=== PATIENT | male | born 1940 | race African-American/Black ===

== ENCOUNTER 2021-01-26 11:16 | Inpatient (IN) ==
[2021-01-26] MEDS ORDERED: ONDANSETRON 4 MG/2 ML VIAL IV STA (12:38)
[2021-01-26 12:57] LABS: Basophils % 0.3 % (0.0-0.8); Eosinophils # 0.1 10*3/uL (0.0-0.87); Hematocrit 36.1 VOL% (42.0-52.0); Hemoglobin 11.3 GM/DL (14.0-18.0); Immature Granulocytes % 0.3 %; Immature Granulocytes Absolute 0.03 #; Lymphocytes # 1.1 10*3/uL (1.4-4.0); Mean Corpuscular HGB Conc 31.3 GM/DL (32-36); Mean Corpuscular Volume 106.5 FL (87-102); Mean Platelet Volume 10.8 FL (9.6-12.0); Monocytes % 8.8 % (1.7-12.7); Neutrophils % 78.6 % (38.7-73.9); Platelet Count 82 T/CUMM (130-400); Red Blood Count 3.39 MC/CUMM (3.8-5.5); Red Cell Distribution Width 19.4 % (9.3-17.3); White Blood Count 9.6 T/CUMM (4-12)
[2021-01-26 13:18] LABS: Albumin 3.3 G/DL (3.4-5.0); Calcium 9.5 MG/DL (8.5-10.1); Osmolality,Calculated 281.4 MOS/KG (273-304); Potassium 5.1 MMOL/L (3.5-5.1)
[2021-01-26 14:22] LABS: Atypical Lymphocytes 1+; Hypochromasia 1+; Microcytosis 1+
[2021-01-26 14:23] LABS: Platelet Estimate Decreased
[2021-01-26] MEDS ORDERED: GLUCAGON 1 MG VIAL IM PRN (17:08)
[2021-01-26] MEDS ORDERED: hydrALAZINE 20 MG/1 ML VIAL IV PRN (17:08)
[2021-01-26] MEDS ORDERED: DEXTROSE 50% 25 GM/50 ML VIAL IV PRN (17:08)
[2021-01-26] MEDS ORDERED: ACETAMINOPHEN 325 MG TABLET PO PRN (17:08)
[2021-01-26] MEDS ORDERED: ONDANSETRON 4 MG/2 ML VIAL IV PRN (17:08)
[2021-01-26] MEDS ORDERED: LACTULOSE 20 GM/30 ML UDCUP PO PRN (17:08)
[2021-01-26] MEDS ORDERED: ZALEPLON 5 MG CAPSULE PO PRN (17:08)
[2021-01-26] MEDS: cefTRIAXone 1,000 MG in SODIUM CHLORIDE 0.9% 100 ML IV SCH (17:47)
[2021-01-26] MEDS: AZITHROMYCIN INJ 500 MG in SODIUM CHLORIDE 0.9% 250 ML IV SCH (18:55)
[2021-01-26] MEDS: SIMVASTATIN 20 MG TABLET PO SCH (21:38)
[2021-01-26] MEDS: carvediloL 6.25 MG TABLET PO SCH (21:38)
[2021-01-26] MEDS: APIXABAN 2.5 MG TABLET PO SCH (21:39)
[2021-01-26] MEDS: GABAPENTIN 100 MG CAPSULE PO SCH (21:39)
[2021-01-27 05:53] LABS: Basophils % 0.1 % (0.0-0.8); Eosinophils # 0.3 10*3/uL (0.0-0.87); Eosinophils % 3.6 % (0.00-10.9); Hematocrit 30.6 VOL% (42.0-52.0); Hemoglobin 9.9 GM/DL (14.0-18.0); Immature Granulocytes % 0.4 %; Immature Granulocytes Absolute 0.03 #; Lymphocytes # 0.9 10*3/uL (1.4-4.0); Lymphocytes % 12.6 % (21.2-54.2); Mean Corpuscular HGB Conc 32.4 GM/DL (32-36); Mean Platelet Volume 10.7 FL (9.6-12.0); Monocytes % 16.3 % (1.7-12.7); Red Cell Distribution Width 19.3 % (9.3-17.3); White Blood Count 7.3 T/CUMM (4-12)
[2021-01-27 05:57] LABS: Platelet Count 52 T/CUMM (130-400)
[2021-01-27 06:14] LABS: Atypical Lymphocytes Few; Eosinophils 2 % (0-10); Hypochromasia 1+; Lymphocytes 17 % (20-55); Microcytosis 1+; Ovalocytes Slight; Platelet Estimate Decreased; Segmented Neutrophils 72 % (50-85); Total Cells Counted 100
[2021-01-27 06:27] LABS: Osmolality,Calculated 279.5 MOS/KG (273-304); Potassium 5.7 MMOL/L (3.5-5.1); Risk Ratio 1.89; VLDL CHOLESTEROL 9.2 MG/DL
[2021-01-27] MEDS ORDERED: ALBUTEROL/IPRATROPIUM 3 ML NEB RESP TX PRN (07:46)
[2021-01-27] MEDS: carvediloL 6.25 MG TABLET PO SCH ×2 (09:34→20:55)
[2021-01-27] MEDS: GABAPENTIN 100 MG CAPSULE PO SCH ×3 (09:34→20:55)
[2021-01-27] MEDS: SEVELAMER CARBONATE 800 MG TABLET PO SCH ×3 (09:34→17:05)
[2021-01-27] MEDS: PANTOPRAZOLE 40 MG TABLET PO SCH (09:34)
[2021-01-27] MEDS: ASPIRIN EC 81 MG TABLET PO SCH (09:34)
[2021-01-27] MEDS: APIXABAN 2.5 MG TABLET PO SCH (09:34)
[2021-01-27] MEDS: FUROSEMIDE 40 MG/4 ML VIAL IV SCH (09:35)
[2021-01-27 15:23] LABS: INR 1.3; PT Patient Result 14.3 SECS (10.5-12.0)
[2021-01-27] MEDS: cefTRIAXone 1,000 MG in SODIUM CHLORIDE 0.9% 100 ML IV SCH (16:13)
[2021-01-27] MEDS: AZITHROMYCIN INJ 500 MG in SODIUM CHLORIDE 0.9% 250 ML IV SCH (18:02)
[2021-01-27] MEDS: BENZONATATE 100 MG CAPSULE PO PRN (20:55)
[2021-01-27] MEDS: SIMVASTATIN 20 MG TABLET PO SCH (20:55)
[2021-01-28 05:41] LABS: Calcium 8.6 MG/DL (8.5-10.1); Osmolality,Calculated 276.2 MOS/KG (273-304); Potassium 4.7 MMOL/L (3.5-5.1)
[2021-01-28 05:43] LABS: Basophils % 0.4 % (0.0-0.8); Eosinophils # 0.3 10*3/uL (0.0-0.87); Eosinophils % 5.9 % (0.00-10.9); Hematocrit 27.7 VOL% (42.0-52.0); Hemoglobin 9.3 GM/DL (14.0-18.0); Immature Granulocytes % 0.4 %; Immature Granulocytes Absolute 0.02 #; Lymphocytes # 0.6 10*3/uL (1.4-4.0); Lymphocytes % 10.5 % (21.2-54.2); Mean Corpuscular HGB Conc 33.6 GM/DL (32-36); Mean Corpuscular Volume 101.1 FL (87-102); Mean Platelet Volume 12.6 FL (9.6-12.0); Monocytes % 15.3 % (1.7-12.7); Neutrophils % 67.5 % (38.7-73.9); Red Blood Count 2.74 MC/CUMM (3.8-5.5); Red Cell Distribution Width 19.3 % (9.3-17.3); White Blood Count 5.6 T/CUMM (4-12)
[2021-01-28 05:44] LABS: Platelet Count 60 T/CUMM (130-400)
[2021-01-28 05:48] LABS: Hypochromasia 1+; Microcytosis 1+; Platelet Estimate Decreased
[2021-01-28] MEDS: PANTOPRAZOLE 40 MG TABLET PO SCH (08:52)
[2021-01-28] MEDS: GABAPENTIN 100 MG CAPSULE PO SCH ×3 (08:53→21:43)
[2021-01-28] MEDS: SEVELAMER CARBONATE 800 MG TABLET PO SCH ×3 (08:53→17:15)
[2021-01-28] MEDS: ASPIRIN EC 81 MG TABLET PO SCH (08:53)
[2021-01-28] MEDS: carvediloL 6.25 MG TABLET PO SCH ×2 (08:53→21:43)
[2021-01-28] MEDS: FUROSEMIDE 40 MG/4 ML VIAL IV SCH (08:53)
[2021-01-28] MEDS: cefTRIAXone 1,000 MG in SODIUM CHLORIDE 0.9% 100 ML IV SCH (08:59)
[2021-01-28] MEDS: BENZONATATE 100 MG CAPSULE PO PRN ×2 (09:25→21:43)
[2021-01-28] MEDS: AZITHROMYCIN INJ 500 MG in SODIUM CHLORIDE 0.9% 250 ML IV SCH (10:29)
[2021-01-28] MEDS: LACTULOSE 20 GM/30 ML UDCUP PO PRN (15:58)
[2021-01-28] MEDS: SIMVASTATIN 20 MG TABLET PO SCH (21:43)
[2021-01-29 05:55] LABS: Basophils % 0.3 % (0.0-0.8); Eosinophils # 0.3 10*3/uL (0.0-0.87); Eosinophils % 5.8 % (0.00-10.9); Hematocrit 28.5 VOL% (42.0-52.0); Hemoglobin 9.2 GM/DL (14.0-18.0); Immature Granulocytes % 0.2 %; Immature Granulocytes Absolute 0.01 #; Lymphocytes # 0.5 10*3/uL (1.4-4.0); Lymphocytes % 9.2 % (21.2-54.2); Mean Corpuscular HGB Conc 32.3 GM/DL (32-36); Mean Corpuscular Volume 103.3 FL (87-102); Mean Platelet Volume 11.3 FL (9.6-12.0); Monocytes % 15.4 % (1.7-12.7); Neutrophils % 69.1 % (38.7-73.9); Red Blood Count 2.76 MC/CUMM (3.8-5.5); White Blood Count 5.7 T/CUMM (4-12)
[2021-01-29 05:57] LABS: Platelet Count 77 T/CUMM (130-400)
[2021-01-29 06:03] LABS: Calcium 8.9 MG/DL (8.5-10.1); Osmolality,Calculated 277.5 MOS/KG (273-304); Potassium 4.7 MMOL/L (3.5-5.1)
[2021-01-29 06:23] LABS: Anisocytosis 1+; Platelet Estimate Decreased; Poikilocytosis Slight
[2021-01-29 06:24] LABS: Burr Cells Few; Macrocytosis 1+; Ovalocytes Few
[2021-01-29] MEDS: SEVELAMER CARBONATE 800 MG TABLET PO SCH ×4 (08:02→16:14)
[2021-01-29] MEDS: ASPIRIN EC 81 MG TABLET PO SCH (08:02)
[2021-01-29] MEDS: GABAPENTIN 100 MG CAPSULE PO SCH ×3 (08:02→21:15)
[2021-01-29] MEDS: FUROSEMIDE 40 MG/4 ML VIAL IV SCH (08:03)
[2021-01-29] MEDS: PANTOPRAZOLE 40 MG TABLET PO SCH (08:03)
[2021-01-29] MEDS: cefTRIAXone 1,000 MG in SODIUM CHLORIDE 0.9% 100 ML IV SCH (08:04)
[2021-01-29] MEDS: AZITHROMYCIN INJ 500 MG in SODIUM CHLORIDE 0.9% 250 ML IV SCH ×2 (08:05→09:29)
[2021-01-29] MEDS: carvediloL 12.5 MG TABLET PO SCH ×2 (08:15→21:15)
[2021-01-29] MEDS: SIMVASTATIN 20 MG TABLET PO SCH (21:15)
[2021-01-30 05:21] LABS: Basophils % 0.3 % (0.0-0.8); Eosinophils # 0.3 10*3/uL (0.0-0.87); Eosinophils % 5.3 % (0.00-10.9); Hematocrit 24.8 VOL% (42.0-52.0); Hemoglobin 7.8 GM/DL (14.0-18.0); Immature Granulocytes % 0.6 %; Immature Granulocytes Absolute 0.04 #; Lymphocytes # 0.7 10*3/uL (1.4-4.0); Lymphocytes % 10.9 % (21.2-54.2); Mean Corpuscular HGB Conc 31.5 GM/DL (32-36); Mean Corpuscular Volume 103.3 FL (87-102); Mean Platelet Volume 10.8 FL (9.6-12.0); Monocytes % 12.2 % (1.7-12.7); Neutrophils % 70.7 % (38.7-73.9); Platelet Count 99 T/CUMM (130-400); Red Cell Distribution Width 18.7 % (9.3-17.3); White Blood Count 6.2 T/CUMM (4-12)
[2021-01-30 05:40] LABS: Hypochromasia 1+; Microcytosis 1+; Ovalocytes Few; Platelet Estimate Decreased
[2021-01-30 05:51] LABS: Calcium 8.7 MG/DL (8.5-10.1); Potassium 4.6 MMOL/L (3.5-5.1)
[2021-01-30] MEDS: FUROSEMIDE 40 MG/4 ML VIAL IV SCH (09:57)
[2021-01-30] MEDS: cefTRIAXone 1,000 MG in SODIUM CHLORIDE 0.9% 100 ML IV SCH (09:57)
[2021-01-30] MEDS: SEVELAMER CARBONATE 800 MG TABLET PO SCH ×3 (10:00→16:01)
[2021-01-30] MEDS: ASPIRIN EC 81 MG TABLET PO SCH (10:00)
[2021-01-30] MEDS: GABAPENTIN 100 MG CAPSULE PO SCH ×3 (10:01→20:28)
[2021-01-30] MEDS: carvediloL 12.5 MG TABLET PO SCH ×2 (10:01→20:27)
[2021-01-30] MEDS: PANTOPRAZOLE 40 MG TABLET PO SCH (10:01)
[2021-01-30] MEDS: AZITHROMYCIN INJ 500 MG in SODIUM CHLORIDE 0.9% 250 ML IV SCH (11:34)
[2021-01-30 13:16] LABS: Hematocrit 25.3 VOL% (42.0-52.0)
[2021-01-30 20:20] LABS: Lymphocytes,Synovial Fluid 4 %; Neutrophils,Synovial Fluid 87 %
[2021-01-30] MEDS: SIMVASTATIN 20 MG TABLET PO SCH (20:28)
[2021-01-30 21:09] LABS: Amylase,Pleural Fluid 27 U/L; Glucose,Pleural Fluid 106 MG/DL; LDH,Pleural Fluid 113 U/L; Total Protein,Pleural Fluid 2.2 G/DL
[2021-01-30 21:19] LABS: Eosinophils,Pleural Fluid 1 %; Lymphocytes,Pleural Fluid 31 %; Monocytes,Pleural Fluid 36 %; Neutrophils,Pleural Fluid 32 %; RBC,Pleural Fluid 69181 T/CUMM
[2021-01-31 06:14] LABS: Basophils % 0.5 % (0.0-0.8); Eosinophils # 0.3 10*3/uL (0.0-0.87); Eosinophils % 4.9 % (0.00-10.9); Hematocrit 22.8 VOL% (42.0-52.0); Hemoglobin 7.2 GM/DL (14.0-18.0); Immature Granulocytes % 0.7 %; Immature Granulocytes Absolute 0.04 #; Lymphocytes # 0.6 10*3/uL (1.4-4.0); Lymphocytes % 10.4 % (21.2-54.2); Mean Corpuscular HGB Conc 31.6 GM/DL (32-36); Mean Corpuscular Volume 103.6 FL (87-102); Mean Platelet Volume 10.8 FL (9.6-12.0); Monocytes % 11.7 % (1.7-12.7); Neutrophils % 71.8 % (38.7-73.9); Platelet Count 105 T/CUMM (130-400); Red Cell Distribution Width 18.7 % (9.3-17.3); White Blood Count 6.2 T/CUMM (4-12)
[2021-01-31 06:24] LABS: Albumin 2.2 G/DL (3.4-5.0); Bilirubin,Total 0.7 MG/DL (0.2-1.0); Osmolality,Calculated 277.4 MOS/KG (273-304); Potassium 5.1 MMOL/L (3.5-5.1); Total Protein 6.4 G/DL (6.4-8.2)
[2021-01-31] MEDS: FUROSEMIDE 40 MG/4 ML VIAL IV SCH (08:35)
[2021-01-31] MEDS: ASPIRIN EC 81 MG TABLET PO SCH (08:38)
[2021-01-31] MEDS: carvediloL 12.5 MG TABLET PO SCH ×2 (08:38→21:26)
[2021-01-31] MEDS: SEVELAMER CARBONATE 800 MG TABLET PO SCH ×3 (08:54→18:26)
[2021-01-31] MEDS: GABAPENTIN 100 MG CAPSULE PO SCH ×3 (08:56→21:26)
[2021-01-31] MEDS: PANTOPRAZOLE 40 MG TABLET PO SCH (08:56)
[2021-01-31] MEDS ORDERED: SODIUM CHLORIDE 0.9% 1,000 ML IV PRN (10:35)
[2021-01-31] MEDS: LACTULOSE 20 GM/30 ML UDCUP PO PRN ×2 (12:56→18:26)
[2021-01-31] MEDS: cefTRIAXone 1,000 MG in SODIUM CHLORIDE 0.9% 100 ML IV SCH (13:47)
[2021-01-31] MEDS: AZITHROMYCIN INJ 500 MG in SODIUM CHLORIDE 0.9% 250 ML IV SCH (14:44)
[2021-01-31] MEDS: APIXABAN 2.5 MG TABLET PO SCH (20:42)
[2021-01-31] MEDS: SIMVASTATIN 20 MG TABLET PO SCH (21:26)
[2021-02-01 06:07] LABS: Basophils % 0.3 % (0.0-0.8); Eosinophils # 0.3 10*3/uL (0.0-0.87); Eosinophils % 5.7 % (0.00-10.9); Hematocrit 24.2 VOL% (42.0-52.0); Hemoglobin 7.6 GM/DL (14.0-18.0); Immature Granulocytes % 0.5 %; Immature Granulocytes Absolute 0.03 #; Lymphocytes # 0.6 10*3/uL (1.4-4.0); Lymphocytes % 10.7 % (21.2-54.2); Mean Corpuscular HGB Conc 31.4 GM/DL (32-36); Mean Corpuscular Volume 102.5 FL (87-102); Mean Platelet Volume 10.6 FL (9.6-12.0); Monocytes % 11.7 % (1.7-12.7); Neutrophils % 71.1 % (38.7-73.9); Platelet Count 136 T/CUMM (130-400); Red Blood Count 2.36 MC/CUMM (3.8-5.5); Red Cell Distribution Width 18.5 % (9.3-17.3)
[2021-02-01 06:19] LABS: Calcium 8.6 MG/DL (8.5-10.1); Osmolality,Calculated 281.8 MOS/KG (273-304); Potassium 4.5 MMOL/L (3.5-5.1)
[2021-02-01] MEDS: PANTOPRAZOLE 40 MG TABLET PO SCH (09:30)
[2021-02-01] MEDS: FUROSEMIDE 40 MG/4 ML VIAL IV SCH (09:30)
[2021-02-01] MEDS: LACTULOSE 20 GM/30 ML UDCUP PO SCH ×6 (09:30→23:45)
[2021-02-01] MEDS: SEVELAMER CARBONATE 800 MG TABLET PO SCH ×3 (09:30→17:16)
[2021-02-01] MEDS: ASPIRIN EC 81 MG TABLET PO SCH (09:30)
[2021-02-01] MEDS: GABAPENTIN 100 MG CAPSULE PO SCH ×3 (09:30→20:54)
[2021-02-01] MEDS: carvediloL 12.5 MG TABLET PO SCH ×2 (09:31→20:54)
[2021-02-01] MEDS: APIXABAN 2.5 MG TABLET PO SCH ×2 (09:31→20:54)
[2021-02-01] MEDS: cefTRIAXone 1,000 MG in SODIUM CHLORIDE 0.9% 100 ML IV SCH (09:34)
[2021-02-01] MEDS: AZITHROMYCIN INJ 500 MG in SODIUM CHLORIDE 0.9% 250 ML IV SCH (10:59)
[2021-02-01] MEDS: SIMVASTATIN 20 MG TABLET PO SCH (20:54)
[2021-02-02] MEDS: LACTULOSE 20 GM/30 ML UDCUP PO SCH ×5 (03:22→20:51)
[2021-02-02 05:23] LABS: Basophils % 0.3 % (0.0-0.8); Eosinophils # 0.4 10*3/uL (0.0-0.87); Eosinophils % 6.1 % (0.00-10.9); Hematocrit 25.2 VOL% (42.0-52.0); Immature Granulocytes % 0.6 %; Immature Granulocytes Absolute 0.04 #; Lymphocytes # 0.7 10*3/uL (1.4-4.0); Mean Corpuscular HGB Conc 31.7 GM/DL (32-36); Mean Corpuscular Volume 102.4 FL (87-102); Mean Platelet Volume 10.2 FL (9.6-12.0); Monocytes % 11.7 % (1.7-12.7); Neutrophils % 71.3 % (38.7-73.9); Platelet Count 165 T/CUMM (130-400); Red Blood Count 2.46 MC/CUMM (3.8-5.5); Red Cell Distribution Width 18.2 % (9.3-17.3); White Blood Count 6.8 T/CUMM (4-12)
[2021-02-02 05:51] LABS: Osmolality,Calculated 282.1 MOS/KG (273-304); Potassium 4.4 MMOL/L (3.5-5.1)
[2021-02-02] MEDS: cefTRIAXone 1,000 MG in SODIUM CHLORIDE 0.9% 100 ML IV SCH (09:12)
[2021-02-02] MEDS: FUROSEMIDE 40 MG/4 ML VIAL IV SCH (09:14)
[2021-02-02] MEDS: GABAPENTIN 100 MG CAPSULE PO SCH ×3 (09:16→20:51)
[2021-02-02] MEDS: SEVELAMER CARBONATE 800 MG TABLET PO SCH ×3 (09:16→17:00)
[2021-02-02] MEDS: APIXABAN 2.5 MG TABLET PO SCH ×2 (09:16→20:51)
[2021-02-02] MEDS: carvediloL 12.5 MG TABLET PO SCH ×2 (09:16→20:51)
[2021-02-02] MEDS: ASPIRIN EC 81 MG TABLET PO SCH (09:16)
[2021-02-02] MEDS: PANTOPRAZOLE 40 MG TABLET PO SCH (09:16)
[2021-02-02] MEDS: AZITHROMYCIN INJ 500 MG in SODIUM CHLORIDE 0.9% 250 ML IV SCH (09:54)
[2021-02-02] MEDS: SIMVASTATIN 20 MG TABLET PO SCH (20:51)
[2021-02-03] MEDS: LACTULOSE 20 GM/30 ML UDCUP PO SCH ×6 (00:16→20:00)
[2021-02-03 06:36] LABS: Basophils % 0.4 % (0.0-0.8); Eosinophils # 0.4 10*3/uL (0.0-0.87); Eosinophils % 5.3 % (0.00-10.9); Hematocrit 25.2 VOL% (42.0-52.0); Hemoglobin 8.4 GM/DL (14.0-18.0); Immature Granulocytes % 0.4 %; Immature Granulocytes Absolute 0.03 #; Lymphocytes # 0.7 10*3/uL (1.4-4.0); Lymphocytes % 9.7 % (21.2-54.2); Mean Corpuscular HGB Conc 33.3 GM/DL (32-36); Mean Platelet Volume 10.5 FL (9.6-12.0); Monocytes % 9.7 % (1.7-12.7); Neutrophils % 74.5 % (38.7-73.9); Platelet Count 167 T/CUMM (130-400); Red Blood Count 2.52 MC/CUMM (3.8-5.5); Red Cell Distribution Width 18.1 % (9.3-17.3); White Blood Count 6.8 T/CUMM (4-12)
[2021-02-03 06:51] LABS: Calcium 9.2 MG/DL (8.5-10.1); Osmolality,Calculated 280.4 MOS/KG (273-304); Potassium 4.7 MMOL/L (3.5-5.1)
[2021-02-03] MEDS: APIXABAN 2.5 MG TABLET PO SCH ×2 (08:31→21:24)
[2021-02-03] MEDS: GABAPENTIN 100 MG CAPSULE PO SCH ×3 (08:31→21:28)
[2021-02-03] MEDS: carvediloL 12.5 MG TABLET PO SCH (08:31)
[2021-02-03] MEDS: PANTOPRAZOLE 40 MG TABLET PO SCH (08:31)
[2021-02-03] MEDS: ASPIRIN EC 81 MG TABLET PO SCH (08:31)
[2021-02-03] MEDS: FUROSEMIDE 40 MG/4 ML VIAL IV SCH (08:32)
[2021-02-03] MEDS: SEVELAMER CARBONATE 800 MG TABLET PO SCH ×3 (09:35→16:25)
[2021-02-03 19:36] LABS: CEA, Pleural Fluid 1.2 ng/mL
[2021-02-03] MEDS: SIMVASTATIN 20 MG TABLET PO SCH (21:28)
[2021-02-03] MEDS: carvediloL 25 MG TABLET PO SCH (21:28)
[2021-02-03] MEDS: DILTIAZEM 60 MG TABLET PO SCH (21:36)
[2021-02-04] MEDS: LACTULOSE 20 GM/30 ML UDCUP PO SCH ×3 (03:24→10:07)
[2021-02-04 06:09] LABS: Basophils % 0.5 % (0.0-0.8); Eosinophils # 0.4 10*3/uL (0.0-0.87); Eosinophils % 5.1 % (0.00-10.9); Hematocrit 27.5 VOL% (42.0-52.0); Hemoglobin 8.9 GM/DL (14.0-18.0); Immature Granulocytes % 0.6 %; Immature Granulocytes Absolute 0.05 #; Lymphocytes # 0.8 10*3/uL (1.4-4.0); Lymphocytes % 10.5 % (21.2-54.2); Mean Corpuscular HGB Conc 32.4 GM/DL (32-36); Mean Corpuscular Volume 100.7 FL (87-102); Monocytes % 9.4 % (1.7-12.7); Neutrophils % 73.9 % (38.7-73.9); Platelet Count 175 T/CUMM (130-400); Red Blood Count 2.73 MC/CUMM (3.8-5.5); Red Cell Distribution Width 17.9 % (9.3-17.3); White Blood Count 7.7 T/CUMM (4-12)
[2021-02-04 06:20] LABS: Calcium 8.9 MG/DL (8.5-10.1); Potassium 4.4 MMOL/L (3.5-5.1)
[2021-02-04] MEDS: ASPIRIN EC 81 MG TABLET PO SCH (09:27)
[2021-02-04] MEDS: SEVELAMER CARBONATE 800 MG TABLET PO SCH ×2 (09:27→12:47)
[2021-02-04] MEDS: carvediloL 25 MG TABLET PO SCH (09:28)
[2021-02-04] MEDS: PANTOPRAZOLE 40 MG TABLET PO SCH (09:28)
[2021-02-04] MEDS: APIXABAN 2.5 MG TABLET PO SCH (09:28)
[2021-02-04] MEDS: GABAPENTIN 100 MG CAPSULE PO SCH (09:28)
[2021-02-04] MEDS: FUROSEMIDE 40 MG/4 ML VIAL IV SCH (09:30)
[2021-02-04] MEDS: DILTIAZEM 60 MG TABLET PO SCH ×2 (11:29→12:47)
[2021-02-04 12:13] VITALS: BP 110/54
[2021-02-04] MEDS ORDERED: SIMVASTATIN 10 MG TABLET PO SCH (21:00)
== END 2021-02-04 15:00 | disposition home health service (06) | DRG 193 ==
LOC: N.ED 11:16 → N.EDINP 11:16 → N.5E 18:02 → SUATTDRO 01-27 14:59
PROVIDERS: ADMIT Internal Medicine; ATTEND Internal Medicine
PROC: IRTHORA (2021-01-30 14:50)

== ENCOUNTER 2021-02-06 14:12 | Inpatient (IN) ==
[2021-02-06] MEDS ORDERED: NOREPINEPHRINE 4 MG/4 ML VIAL IV ONE (14:59)
[2021-02-06] MEDS ORDERED: VANCOMYCIN INJ 1,000 MG in SODIUM CHLORIDE 0.9% 250 ML IV STA (15:13)
[2021-02-06] MEDS ORDERED: SODIUM CHLORIDE 0.9% 1,000 ML IV PRN (15:14)
[2021-02-06] MEDS ORDERED: ONDANSETRON 4 MG/2 ML VIAL IV PRN (15:22)
[2021-02-06] MEDS ORDERED: GLUCAGON 1 MG VIAL IM PRN (15:22)
[2021-02-06] MEDS ORDERED: ALBUTEROL 2.5 MG/3 ML NEB RESP TX PRN (15:22)
[2021-02-06] MEDS ORDERED: DEXTROSE 50% 25 GM/50 ML VIAL IV PRN (15:22)
[2021-02-06 15:23] LABS: Basophils % 0.2 % (0.0-0.8); Eosinophils # 0.1 10*3/uL (0.0-0.87); Eosinophils % 0.8 % (0.00-10.9); Immature Granulocytes % 1.5 %; Immature Granulocytes Absolute 0.18 #; Lymphocytes % 8.5 % (21.2-54.2); Mean Corpuscular HGB Conc 31.4 GM/DL (32-36); Mean Corpuscular Volume 103.6 FL (87-102); Mean Platelet Volume 10.2 FL (9.6-12.0); Monocytes % 8.5 % (1.7-12.7); Neutrophils % 80.5 % (38.7-73.9); Platelet Count 249 T/CUMM (130-400); Red Blood Count 1.66 MC/CUMM (3.8-5.5); Red Cell Distribution Width 17.8 % (9.3-17.3); White Blood Count 11.9 T/CUMM (4-12)
[2021-02-06] MEDS ORDERED: NOREPINEPHRINE 8 MG in SODIUM CHLORIDE 0.9% 242 ML IV PRN (15:24)
[2021-02-06 15:26] LABS: Hematocrit 17.2 VOL% (42.0-52.0); Hemoglobin 5.4 GM/DL (14.0-18.0)
[2021-02-06] MEDS ORDERED: HYDROCORTISONE 100 MG VIAL IV STA (15:27)
[2021-02-06] MEDS ORDERED: cefTRIAXone 1,000 MG VIAL ONE (16:16)
[2021-02-06] MEDS: PANTOPRAZOLE 40 MG VIAL IV SCH (17:48)
[2021-02-06] MEDS: cefTRIAXone 2,000 MG in SODIUM CHLORIDE 0.9% 100 ML IV SCH (17:49)
[2021-02-06] MEDS: HYDROCORTISONE 100 MG VIAL IV SCH (17:49)
[2021-02-06] MEDS: SEVELAMER CARBONATE 800 MG TABLET PO SCH (19:03)
[2021-02-06] MEDS: INSULIN LISPRO 100 UNIT/ML SUBCUT SCH ×2 (19:03→20:14)
[2021-02-06] MEDS ORDERED: APIXABAN 2.5 MG TABLET PO SCH (21:00)
[2021-02-06 23:29] LABS: Hematocrit 23.5 VOL% (42.0-52.0)
[2021-02-06 23:31] LABS: Hemoglobin 7.7 GM/DL (14.0-18.0)
[2021-02-07] MEDS: HYDROCORTISONE 100 MG VIAL IV SCH ×4 (00:07→22:57)
[2021-02-07] MEDS ORDERED: cefTRIAXone 2,000 MG VIAL ONE (04:00)
[2021-02-07] MEDS ORDERED: SODIUM CHLORIDE 0.9% 0 ML IV ONE (04:00)
[2021-02-07] MEDS: cefTRIAXone 2,000 MG in SODIUM CHLORIDE 0.9% 100 ML IV SCH ×2 (04:14→17:45)
[2021-02-07 06:27] LABS: Basophils % 0.1 % (0.0-0.8); Hematocrit 20.2 VOL% (42.0-52.0); Immature Granulocytes % 0.7 %; Immature Granulocytes Absolute 0.08 #; Lymphocytes # 0.8 10*3/uL (1.4-4.0); Lymphocytes % 6.5 % (21.2-54.2); Mean Corpuscular HGB Conc 34.7 GM/DL (32-36); Mean Corpuscular Volume 96.2 FL (87-102); Mean Platelet Volume 9.9 FL (9.6-12.0); Monocytes % 5.9 % (1.7-12.7); Neutrophils % 86.8 % (38.7-73.9); Platelet Count 208 T/CUMM (130-400); Red Cell Distribution Width 17.2 % (9.3-17.3); White Blood Count 11.5 T/CUMM (4-12)
[2021-02-07 06:59] LABS: Albumin 1.9 G/DL (3.4-5.0); Bilirubin,Total 1.5 MG/DL (0.2-1.0); Calcium 8.2 MG/DL (8.5-10.1); Osmolality,Calculated 284.2 MOS/KG (273-304); Potassium 5.6 MMOL/L (3.5-5.1); Thyroid Stimulating Hormone 2.29 uIU/ml (0.358-3.74); Total Protein 5.6 G/DL (6.4-8.2)
[2021-02-07] MEDS: INSULIN LISPRO 100 UNIT/ML SUBCUT SCH ×4 (07:36→20:08)
[2021-02-07] MEDS ORDERED: SODIUM CHLORIDE 0.9% 1,000 ML IV PRN (08:06)
[2021-02-07] MEDS: SEVELAMER CARBONATE 800 MG TABLET PO SCH ×3 (08:38→16:50)
[2021-02-07] MEDS ORDERED: ASPIRIN EC 81 MG TABLET PO SCH (09:00)
[2021-02-07] MEDS: PANTOPRAZOLE 40 MG VIAL IV SCH (16:49)
[2021-02-07] MEDS ORDERED: carvediloL 3.125 MG TABLET PO SCH (17:00)
[2021-02-07] MEDS ORDERED: carvediloL 6.25 MG TABLET PO SCH (17:00)
[2021-02-07 18:31] LABS: Hematocrit 24.4 VOL% (42.0-52.0); Hemoglobin 8.3 GM/DL (14.0-18.0)
[2021-02-08] MEDS: cefTRIAXone 2,000 MG in SODIUM CHLORIDE 0.9% 100 ML IV SCH ×2 (04:08→16:08)
[2021-02-08 05:28] LABS: Basophils % 0.1 % (0.0-0.8); Eosinophils % 0.1 % (0.00-10.9); Hematocrit 23.2 VOL% (42.0-52.0); Hemoglobin 8.1 GM/DL (14.0-18.0); Immature Granulocytes % 0.8 %; Immature Granulocytes Absolute 0.12 #; Lymphocytes # 0.7 10*3/uL (1.4-4.0); Mean Corpuscular HGB Conc 34.9 GM/DL (32-36); Mean Corpuscular Volume 92.8 FL (87-102); Mean Platelet Volume 9.7 FL (9.6-12.0); Monocytes % 8.4 % (1.7-12.7); Neutrophils % 85.6 % (38.7-73.9); Platelet Count 230 T/CUMM (130-400); Red Cell Distribution Width 17.9 % (9.3-17.3); White Blood Count 14.9 T/CUMM (4-12)
[2021-02-08 05:39] LABS: INR 1.2; PT Patient Result 13.5 SECS (10.5-12.0); Partial Thromboplastin Time 33.3 SECS (23.9-33.8)
[2021-02-08 05:48] LABS: Calcium 8.5 MG/DL (8.5-10.1)
[2021-02-08 05:53] LABS: Bilirubin,Total 0.7 MG/DL (0.2-1.0); Calcium 8.4 MG/DL (8.5-10.1); Osmolality,Calculated 284.8 MOS/KG (273-304); Total Protein 5.8 G/DL (6.4-8.2)
[2021-02-08] MEDS: INSULIN LISPRO 100 UNIT/ML SUBCUT SCH ×4 (08:32→21:38)
[2021-02-08] MEDS: HYDROCORTISONE 100 MG VIAL IV SCH ×2 (08:38→16:08)
[2021-02-08] MEDS: SEVELAMER CARBONATE 800 MG TABLET PO SCH ×3 (08:39→17:29)
[2021-02-08] MEDS: carvediloL 3.125 MG TABLET PO SCH ×2 (08:39→17:29)
[2021-02-08] MEDS: PANTOPRAZOLE 40 MG VIAL IV SCH (16:07)
[2021-02-08] MEDS: FLUTICASONE 50 MCG NASAL SPRAY 16 GM BOTTLE BOTH NARES SCH (17:29)
[2021-02-09] MEDS: HYDROCORTISONE 100 MG VIAL IV SCH ×3 (00:23→21:24)
[2021-02-09] MEDS: PANTOPRAZOLE 40 MG VIAL IV SCH ×2 (02:47→12:52)
[2021-02-09] MEDS: cefTRIAXone 2,000 MG in SODIUM CHLORIDE 0.9% 100 ML IV SCH ×2 (02:47→15:20)
[2021-02-09 05:27] LABS: Basophils % 0.1 % (0.0-0.8); Eosinophils % 0.1 % (0.00-10.9); Hematocrit 20.7 VOL% (42.0-52.0); Hemoglobin 6.8 GM/DL (14.0-18.0); Immature Granulocytes % 1.1 %; Immature Granulocytes Absolute 0.13 #; Lymphocytes # 0.6 10*3/uL (1.4-4.0); Lymphocytes % 5.2 % (21.2-54.2); Mean Corpuscular HGB Conc 32.9 GM/DL (32-36); Mean Corpuscular Volume 95.8 FL (87-102); Mean Platelet Volume 9.6 FL (9.6-12.0); Monocytes % 6.8 % (1.7-12.7); Neutrophils % 86.7 % (38.7-73.9); Platelet Count 222 T/CUMM (130-400); Red Blood Count 2.16 MC/CUMM (3.8-5.5); Red Cell Distribution Width 17.6 % (9.3-17.3); White Blood Count 12.1 T/CUMM (4-12)
[2021-02-09 05:49] LABS: Calcium 8.4 MG/DL (8.5-10.1); Osmolality,Calculated 290.8 MOS/KG (273-304); Potassium 4.4 MMOL/L (3.5-5.1)
[2021-02-09] MEDS: SEVELAMER CARBONATE 800 MG TABLET PO SCH ×3 (09:37→18:17)
[2021-02-09] MEDS: carvediloL 3.125 MG TABLET PO SCH ×2 (09:37→18:17)
[2021-02-09] MEDS: FLUTICASONE 50 MCG NASAL SPRAY 16 GM BOTTLE BOTH NARES SCH (09:50)
[2021-02-09] MEDS: INSULIN LISPRO 100 UNIT/ML SUBCUT SCH ×4 (09:50→21:20)
[2021-02-10] MEDS: PANTOPRAZOLE 40 MG VIAL IV SCH ×2 (02:28→12:56)
[2021-02-10] MEDS: cefTRIAXone 2,000 MG in SODIUM CHLORIDE 0.9% 100 ML IV SCH ×2 (02:30→16:00)
[2021-02-10 05:19] LABS: Basophils % 0.1 % (0.0-0.8); Eosinophils % 0.2 % (0.00-10.9); Hematocrit 28.3 VOL% (42.0-52.0); Immature Granulocytes % 1.1 %; Immature Granulocytes Absolute 0.11 #; Lymphocytes # 0.6 10*3/uL (1.4-4.0); Lymphocytes % 6.3 % (21.2-54.2); Mean Corpuscular HGB Conc 32.9 GM/DL (32-36); Mean Corpuscular Volume 93.1 FL (87-102); Mean Platelet Volume 9.6 FL (9.6-12.0); Monocytes % 9.1 % (1.7-12.7); Neutrophils % 83.2 % (38.7-73.9); Platelet Count 219 T/CUMM (130-400); Red Blood Count 3.04 MC/CUMM (3.8-5.5); Red Cell Distribution Width 19.8 % (9.3-17.3); White Blood Count 9.8 T/CUMM (4-12)
[2021-02-10 05:20] LABS: Hemoglobin 9.3 GM/DL (14.0-18.0)
[2021-02-10 05:38] LABS: Albumin 2.2 G/DL (3.4-5.0); Bilirubin,Direct 0.3 MG/DL (0.0-0.20); Bilirubin,Indirect 0.9 MG/DL (0.0-1.0); Bilirubin,Total 1.2 MG/DL (0.2-1.0); Total Protein 6.4 G/DL (6.4-8.2)
[2021-02-10 05:38] LABS: Calcium 8.8 MG/DL (8.5-10.1); Osmolality,Calculated 286.8 MOS/KG (273-304); Potassium 4.4 MMOL/L (3.5-5.1)
[2021-02-10] MEDS: carvediloL 3.125 MG TABLET PO SCH (08:00)
[2021-02-10] MEDS: SEVELAMER CARBONATE 800 MG TABLET PO SCH ×3 (08:00→17:07)
[2021-02-10] MEDS: INSULIN LISPRO 100 UNIT/ML SUBCUT SCH ×4 (08:52→20:08)
[2021-02-10] MEDS: HYDROCORTISONE 100 MG VIAL IV SCH ×2 (09:00→20:07)
[2021-02-10] MEDS: SODIUM CHLORIDE 0.9% 1,000 ML IV SCH (09:07)
[2021-02-10] MEDS ORDERED: propofoL 200 MG/20 ML VIAL IV ONE (09:14)
[2021-02-10] MEDS ORDERED: LIDOCAINE 2% 5 ML VIAL ONE (09:14)
[2021-02-10] MEDS ORDERED: PHENYLEPHRINE 1 MG/10 ML SYRINGE IV ONE (09:23)
[2021-02-10] MEDS ORDERED: ePHEDrine 50 MG/ML VIAL ONE (09:28)
[2021-02-10] MEDS ORDERED: CALCIUM CHLORIDE 1,000 MG/10 ML VIAL IV ONE (09:31)
[2021-02-10] MEDS ORDERED: NOREPINEPHRINE 8 MG in SODIUM CHLORIDE 0.9% 242 ML IV PRN (10:04)
[2021-02-10] MEDS ORDERED: MIDAZOLAM 100 MG in SODIUM CHLORIDE 0.9% 80 ML IV PRN (10:10)
[2021-02-10] MEDS ORDERED: LORazepam 2 MG/1 ML VIAL ONE (10:11)
[2021-02-10] MEDS: FLUTICASONE 50 MCG NASAL SPRAY 16 GM BOTTLE BOTH NARES SCH (10:24)
[2021-02-10 11:15] LABS: ABG Base Excess 0.1 MMOL/L (-2.5-2.5); ABG HCO3 24.6 MMOL/L (20-26); ABG PCO2 36.2 MM HG (35-48); ABG PH 7.432 (7.35-7.45); ABG TCO2 22.1 MMOL/L (23-27)
[2021-02-10 11:17] LABS: Eosinophils # 0.1 10*3/uL (0.0-0.87); Eosinophils % 0.6 % (0.00-10.9); Hematocrit 28.9 VOL% (42.0-52.0); Hemoglobin 9.2 GM/DL (14.0-18.0); Immature Granulocytes % 2.1 %; Immature Granulocytes Absolute 0.22 #; Lymphocytes # 0.7 10*3/uL (1.4-4.0); Lymphocytes % 6.2 % (21.2-54.2); Mean Corpuscular HGB Conc 31.8 GM/DL (32-36); Mean Corpuscular Volume 95.7 FL (87-102); Mean Platelet Volume 9.7 FL (9.6-12.0); Monocytes % 7.7 % (1.7-12.7); NRBC # 0.03 10*3/uL; Neutrophils % 83.4 % (38.7-73.9); Platelet Count 243 T/CUMM (130-400); Red Blood Count 3.02 MC/CUMM (3.8-5.5); Red Cell Distribution Width 20.4 % (9.3-17.3); White Blood Count 10.4 T/CUMM (4-12)
[2021-02-10 11:28] LABS: INR 1.2; PT Patient Result 13.5 SECS (10.5-12.0); Partial Thromboplastin Time 26.1 SECS (23.9-33.8)
[2021-02-10 11:47] LABS: Bilirubin,Total 0.7 MG/DL (0.2-1.0); Calcium 8.8 MG/DL (8.5-10.1); Osmolality,Calculated 296.4 MOS/KG (273-304); Potassium 4.5 MMOL/L (3.5-5.1); Total Protein 5.6 G/DL (6.4-8.2)
[2021-02-10 13:28] LABS: Hematocrit 26.1 VOL% (42.0-52.0); Hemoglobin 8.8 GM/DL (14.0-18.0)
[2021-02-10 17:45] LABS: Hematocrit 26.7 VOL% (42.0-52.0); Hemoglobin 8.7 GM/DL (14.0-18.0)
[2021-02-10] MEDS ORDERED: POLYETHYLENE GLYCOL 3350/ELECTROLYTES 4,000 ML BOTTLE PO ONE (18:00)
[2021-02-10] MEDS: BISACODYL 5 MG TABLET NG SCH (18:40)
[2021-02-10] MEDS ORDERED: MAGNESIUM CITRATE 300 ML BOTTLE PO ONE (21:00)
[2021-02-11 00:53] LABS: Hematocrit 30.9 VOL% (42.0-52.0); Hemoglobin 10.1 GM/DL (14.0-18.0)
[2021-02-11] MEDS: PANTOPRAZOLE 40 MG VIAL IV SCH ×2 (01:15→14:53)
[2021-02-11] MEDS: BISACODYL 5 MG TABLET NG SCH ×2 (01:30→11:08)
[2021-02-11] MEDS: cefTRIAXone 2,000 MG in SODIUM CHLORIDE 0.9% 100 ML IV SCH ×2 (04:00→14:53)
[2021-02-11 04:29] LABS: ABG Base Excess 0.3 MMOL/L (-2.5-2.5); ABG HCO3 24.7 MMOL/L (20-26); ABG PCO2 28.3 MM HG (35-48); ABG TCO2 20.6 MMOL/L (23-27)
[2021-02-11 04:30] LABS: Eosinophils % 0.4 % (0.00-10.9); Hematocrit 28.6 VOL% (42.0-52.0); Hemoglobin 9.4 GM/DL (14.0-18.0); Immature Granulocytes % 0.9 %; Immature Granulocytes Absolute 0.08 #; Lymphocytes # 0.5 10*3/uL (1.4-4.0); Lymphocytes % 6.2 % (21.2-54.2); Mean Corpuscular HGB Conc 32.9 GM/DL (32-36); Mean Corpuscular Volume 93.5 FL (87-102); Mean Platelet Volume 9.6 FL (9.6-12.0); Monocytes % 8.1 % (1.7-12.7); Neutrophils % 84.4 % (38.7-73.9); Platelet Count 210 T/CUMM (130-400); Red Blood Count 3.06 MC/CUMM (3.8-5.5); Red Cell Distribution Width 20.1 % (9.3-17.3); White Blood Count 8.4 T/CUMM (4-12)
[2021-02-11 04:47] LABS: Bilirubin,Total 0.6 MG/DL (0.2-1.0); Calcium 8.6 MG/DL (8.5-10.1); Osmolality,Calculated 306.7 MOS/KG (273-304); Potassium 4.1 MMOL/L (3.5-5.1); Total Protein 5.9 G/DL (6.4-8.2)
[2021-02-11 06:06] LABS: Hematocrit 31.6 VOL% (42.0-52.0); Hemoglobin 10.3 GM/DL (14.0-18.0)
[2021-02-11] MEDS: INSULIN LISPRO 100 UNIT/ML SUBCUT SCH ×4 (07:18→20:53)
[2021-02-11] MEDS: SEVELAMER CARBONATE 800 MG TABLET PO SCH ×3 (07:19→18:12)
[2021-02-11] MEDS: FLUTICASONE 50 MCG NASAL SPRAY 16 GM BOTTLE BOTH NARES SCH (08:39)
[2021-02-11] MEDS: HYDROCORTISONE 100 MG VIAL IV SCH ×2 (08:40→20:53)
[2021-02-11] MEDS: SODIUM CHLORIDE 0.9% 1,000 ML IV SCH (09:57)
[2021-02-11 11:25] LABS: Hematocrit 28.8 VOL% (42.0-52.0); Hemoglobin 9.4 GM/DL (14.0-18.0)
[2021-02-11] MEDS ORDERED: MIDAZOLAM 2 MG/2 ML VIAL ONE (14:22)
[2021-02-11] MEDS ORDERED: propofoL 200 MG/20 ML VIAL IV ONE (14:23)
[2021-02-11] MEDS ORDERED: ETOMIDATE 40 MG/20 ML VIAL IV ONE (14:23)
[2021-02-11 17:47] LABS: Hematocrit 34.2 VOL% (42.0-52.0); Hemoglobin 10.6 GM/DL (14.0-18.0)
[2021-02-11] MEDS: carvediloL 3.125 MG TABLET PO SCH (18:12)
[2021-02-12] MEDS: PANTOPRAZOLE 40 MG VIAL IV SCH ×2 (01:27→13:11)
[2021-02-12] MEDS: cefTRIAXone 2,000 MG in SODIUM CHLORIDE 0.9% 100 ML IV SCH ×2 (02:53→16:21)
[2021-02-12 04:23] LABS: ABG Base Excess 3.1 MMOL/L (-2.5-2.5); ABG HCO3 27.2 MMOL/L (20-26); ABG Oxygen Saturation 94.8 % (95-100); ABG PCO2 33.7 MM HG (35-48); ABG PH 7.498 (7.35-7.45); ABG TCO2 23.8 MMOL/L (23-27); Eosinophils % 0.3 % (0.00-10.9); Hemoglobin 9.6 GM/DL (14.0-18.0); Immature Granulocytes % 0.7 %; Immature Granulocytes Absolute 0.08 #; Lymphocytes # 0.6 10*3/uL (1.4-4.0); Lymphocytes % 5.3 % (21.2-54.2); Mean Corpuscular Volume 95.5 FL (87-102); Mean Platelet Volume 9.4 FL (9.6-12.0); Monocytes % 6.3 % (1.7-12.7); Neutrophils % 87.4 % (38.7-73.9); Platelet Count 205 T/CUMM (130-400); Red Blood Count 3.14 MC/CUMM (3.8-5.5); Red Cell Distribution Width 19.7 % (9.3-17.3); White Blood Count 10.9 T/CUMM (4-12)
[2021-02-12 04:46] LABS: Calcium 8.7 MG/DL (8.5-10.1); Osmolality,Calculated 290.3 MOS/KG (273-304); Potassium 3.7 MMOL/L (3.5-5.1)
[2021-02-12] MEDS: INSULIN LISPRO 100 UNIT/ML SUBCUT SCH ×4 (07:09→20:49)
[2021-02-12] MEDS: carvediloL 3.125 MG TABLET PO SCH ×2 (07:54→17:59)
[2021-02-12] MEDS: SEVELAMER CARBONATE 800 MG TABLET PO SCH ×3 (07:54→17:59)
[2021-02-12] MEDS: FLUTICASONE 50 MCG NASAL SPRAY 16 GM BOTTLE BOTH NARES SCH (08:04)
[2021-02-12] MEDS: HYDROCORTISONE 100 MG VIAL IV SCH ×2 (08:04→20:48)
[2021-02-12] MEDS: SODIUM CHLORIDE 0.9% 1,000 ML IV SCH (10:21)
[2021-02-13] MEDS: PANTOPRAZOLE 40 MG VIAL IV SCH ×2 (01:59→15:08)
[2021-02-13] MEDS: cefTRIAXone 2,000 MG in SODIUM CHLORIDE 0.9% 100 ML IV SCH ×2 (04:03→18:26)
[2021-02-13 04:21] LABS: Eosinophils % 0.3 % (0.00-10.9); Hemoglobin 9.8 GM/DL (14.0-18.0); Immature Granulocytes % 0.7 %; Immature Granulocytes Absolute 0.07 #; Lymphocytes # 0.6 10*3/uL (1.4-4.0); Lymphocytes % 5.8 % (21.2-54.2); Mean Corpuscular HGB Conc 31.6 GM/DL (32-36); Mean Corpuscular Volume 97.2 FL (87-102); Mean Platelet Volume 9.4 FL (9.6-12.0); Monocytes % 8.1 % (1.7-12.7); Neutrophils % 85.1 % (38.7-73.9); Platelet Count 184 T/CUMM (130-400); Red Blood Count 3.19 MC/CUMM (3.8-5.5); Red Cell Distribution Width 19.7 % (9.3-17.3); White Blood Count 9.8 T/CUMM (4-12)
[2021-02-13 04:37] LABS: Calcium 8.5 MG/DL (8.5-10.1); Osmolality,Calculated 298.1 MOS/KG (273-304)
[2021-02-13] MEDS: INSULIN LISPRO 100 UNIT/ML SUBCUT SCH ×4 (08:13→21:30)
[2021-02-13] MEDS: carvediloL 3.125 MG TABLET PO SCH ×2 (08:50→18:00)
[2021-02-13] MEDS: SEVELAMER CARBONATE 800 MG TABLET PO SCH ×3 (08:50→18:00)
[2021-02-13] MEDS: FLUTICASONE 50 MCG NASAL SPRAY 16 GM BOTTLE BOTH NARES SCH (09:04)
[2021-02-13] MEDS: HYDROCORTISONE 100 MG VIAL IV SCH (09:20)
[2021-02-13] MEDS: SODIUM CHLORIDE 0.9% 1,000 ML IV SCH (11:57)
[2021-02-14] MEDS: PANTOPRAZOLE 40 MG VIAL IV SCH (03:40)
[2021-02-14 05:56] LABS: Basophils % 0.2 % (0.0-0.8); Eosinophils # 0.2 10*3/uL (0.0-0.87); Eosinophils % 1.7 % (0.00-10.9); Hematocrit 30.4 VOL% (42.0-52.0); Hemoglobin 10.1 GM/DL (14.0-18.0); Immature Granulocytes % 1.1 %; Lymphocytes # 0.7 10*3/uL (1.4-4.0); Lymphocytes % 7.5 % (21.2-54.2); Mean Corpuscular HGB Conc 33.2 GM/DL (32-36); Mean Corpuscular Volume 95.3 FL (87-102); Mean Platelet Volume 9.8 FL (9.6-12.0); Monocytes % 10.1 % (1.7-12.7); Neutrophils % 79.4 % (38.7-73.9); Platelet Count 160 T/CUMM (130-400); Red Blood Count 3.19 MC/CUMM (3.8-5.5); Red Cell Distribution Width 19.3 % (9.3-17.3); White Blood Count 9.2 T/CUMM (4-12)
[2021-02-14 06:20] LABS: Calcium 8.8 MG/DL (8.5-10.1); Osmolality,Calculated 285.5 MOS/KG (273-304); Potassium 3.6 MMOL/L (3.5-5.1)
[2021-02-14] MEDS: INSULIN LISPRO 100 UNIT/ML SUBCUT SCH ×4 (09:17→20:52)
[2021-02-14] MEDS: predniSONE 10 MG TABLET PO SCH (09:18)
[2021-02-14] MEDS: SEVELAMER CARBONATE 800 MG TABLET PO SCH ×3 (09:18→17:33)
[2021-02-14] MEDS: carvediloL 3.125 MG TABLET PO SCH ×2 (09:18→17:33)
[2021-02-14] MEDS: FLUTICASONE 50 MCG NASAL SPRAY 16 GM BOTTLE BOTH NARES SCH (09:21)
[2021-02-14] MEDS: PANTOPRAZOLE 40 MG TABLET PO SCH ×2 (09:21→20:53)
[2021-02-14] MEDS: HEPARIN 5,000 UNIT/1 ML VIAL SUBCUT SCH ×2 (11:13→21:54)
[2021-02-14] MEDS: ASPIRIN EC 81 MG TABLET PO SCH (11:13)
[2021-02-15 05:36] LABS: Basophils % 0.1 % (0.0-0.8); Eosinophils % 0.1 % (0.00-10.9); Hematocrit 32.3 VOL% (42.0-52.0); Hemoglobin 10.4 GM/DL (14.0-18.0); Immature Granulocytes % 1.1 %; Lymphocytes # 0.5 10*3/uL (1.4-4.0); Lymphocytes % 5.5 % (21.2-54.2); Mean Corpuscular HGB Conc 32.2 GM/DL (32-36); Mean Platelet Volume 10.1 FL (9.6-12.0); Monocytes % 7.7 % (1.7-12.7); Neutrophils % 85.5 % (38.7-73.9); Platelet Count 155 T/CUMM (130-400); Red Blood Count 3.33 MC/CUMM (3.8-5.5); Red Cell Distribution Width 19.2 % (9.3-17.3)
[2021-02-15 05:51] LABS: Albumin 2.3 G/DL (3.4-5.0); Bilirubin,Total 0.7 MG/DL (0.2-1.0); Calcium 8.7 MG/DL (8.5-10.1); Osmolality,Calculated 293.5 MOS/KG (273-304); Potassium 4.1 MMOL/L (3.5-5.1); Total Protein 6.6 G/DL (6.4-8.2)
[2021-02-15] MEDS: FLUTICASONE 50 MCG NASAL SPRAY 16 GM BOTTLE BOTH NARES SCH (08:20)
[2021-02-15] MEDS: INSULIN LISPRO 100 UNIT/ML SUBCUT SCH ×4 (09:03→20:17)
[2021-02-15] MEDS: carvediloL 3.125 MG TABLET PO SCH (09:04)
[2021-02-15] MEDS: SEVELAMER CARBONATE 800 MG TABLET PO SCH ×3 (09:04→17:18)
[2021-02-15] MEDS: PANTOPRAZOLE 40 MG TABLET PO SCH ×2 (09:05→21:20)
[2021-02-15] MEDS: predniSONE 10 MG TABLET PO SCH (09:05)
[2021-02-15] MEDS: ASPIRIN EC 81 MG TABLET PO SCH (09:05)
[2021-02-15] MEDS: HEPARIN 5,000 UNIT/1 ML VIAL SUBCUT SCH ×2 (09:08→21:20)
[2021-02-15] MEDS: carvediloL 12.5 MG TABLET PO SCH (17:18)
[2021-02-15] MEDS: SIMVASTATIN 20 MG TABLET PO SCH (17:19)
[2021-02-16] MEDS: INSULIN LISPRO 100 UNIT/ML SUBCUT SCH ×4 (08:02→20:17)
[2021-02-16] MEDS: SEVELAMER CARBONATE 800 MG TABLET PO SCH ×3 (10:16→16:56)
[2021-02-16 11:00] LABS: Basophils % 0.1 % (0.0-0.8); Eosinophils # 0.1 10*3/uL (0.0-0.87); Hematocrit 33.9 VOL% (42.0-52.0); Immature Granulocytes % 1.3 %; Immature Granulocytes Absolute 0.15 #; Lymphocytes # 0.7 10*3/uL (1.4-4.0); Lymphocytes % 6.1 % (21.2-54.2); Mean Corpuscular HGB Conc 32.4 GM/DL (32-36); Mean Corpuscular Volume 95.5 FL (87-102); Mean Platelet Volume 9.9 FL (9.6-12.0); Neutrophils % 82.5 % (38.7-73.9); Platelet Count 162 T/CUMM (130-400); Red Blood Count 3.55 MC/CUMM (3.8-5.5); Red Cell Distribution Width 19.4 % (9.3-17.3); White Blood Count 11.4 T/CUMM (4-12)
[2021-02-16 11:21] LABS: Calcium 8.8 MG/DL (8.5-10.1); Osmolality,Calculated 280.7 MOS/KG (273-304)
[2021-02-16] MEDS: predniSONE 20 MG TABLET PO SCH (12:23)
[2021-02-16] MEDS: PANTOPRAZOLE 40 MG TABLET PO SCH ×2 (12:23→20:12)
[2021-02-16] MEDS: carvediloL 12.5 MG TABLET PO SCH ×2 (12:23→16:56)
[2021-02-16] MEDS: ASPIRIN EC 81 MG TABLET PO SCH (12:23)
[2021-02-16] MEDS: HEPARIN 5,000 UNIT/1 ML VIAL SUBCUT SCH ×2 (12:23→21:46)
[2021-02-16] MEDS: FLUTICASONE 50 MCG NASAL SPRAY 16 GM BOTTLE BOTH NARES SCH (12:25)
[2021-02-16] MEDS: SIMVASTATIN 20 MG TABLET PO SCH (16:56)
[2021-02-17 04:37] LABS: Eosinophils % 0.1 % (0.00-10.9); Hematocrit 33.1 VOL% (42.0-52.0); Hemoglobin 10.3 GM/DL (14.0-18.0); Immature Granulocytes % 0.7 %; Immature Granulocytes Absolute 0.06 #; Lymphocytes # 0.4 10*3/uL (1.4-4.0); Lymphocytes % 4.5 % (21.2-54.2); Mean Corpuscular HGB Conc 31.1 GM/DL (32-36); Mean Corpuscular Volume 99.4 FL (87-102); Mean Platelet Volume 9.9 FL (9.6-12.0); Neutrophils % 86.7 % (38.7-73.9); Platelet Count 130 T/CUMM (130-400); Red Blood Count 3.33 MC/CUMM (3.8-5.5); Red Cell Distribution Width 19.3 % (9.3-17.3); White Blood Count 8.5 T/CUMM (4-12)
[2021-02-17 04:53] LABS: Calcium 8.3 MG/DL (8.5-10.1); Osmolality,Calculated 294.4 MOS/KG (273-304); Potassium 4.2 MMOL/L (3.5-5.1)
[2021-02-17 05:03] LABS: Lymphocytes 7 % (20-55); Ovalocytes Slight; Segmented Neutrophils 86 % (50-85); Total Cells Counted 100
[2021-02-17] MEDS: INSULIN LISPRO 100 UNIT/ML SUBCUT SCH ×4 (07:30→21:06)
[2021-02-17] MEDS ORDERED: APIXABAN 2.5 MG TABLET PO SCH (09:00)
[2021-02-17] MEDS: PANTOPRAZOLE 40 MG TABLET PO SCH ×2 (09:35→21:06)
[2021-02-17] MEDS: predniSONE 20 MG TABLET PO SCH (09:35)
[2021-02-17] MEDS: SEVELAMER CARBONATE 800 MG TABLET PO SCH ×3 (09:35→17:36)
[2021-02-17] MEDS: carvediloL 25 MG TABLET PO SCH ×2 (09:35→21:06)
[2021-02-17] MEDS: ASPIRIN EC 81 MG TABLET PO SCH (09:35)
[2021-02-17] MEDS: FLUTICASONE 50 MCG NASAL SPRAY 16 GM BOTTLE BOTH NARES SCH (09:40)
[2021-02-17] MEDS: carvediloL 12.5 MG TABLET PO SCH (11:01)
[2021-02-17] MEDS: SIMVASTATIN 20 MG TABLET PO SCH (17:36)
[2021-02-18 05:49] LABS: Eosinophils % 0.1 % (0.00-10.9); Hematocrit 35.2 VOL% (42.0-52.0); Hemoglobin 11.2 GM/DL (14.0-18.0); Immature Granulocytes % 0.7 %; Immature Granulocytes Absolute 0.06 #; Lymphocytes # 0.5 10*3/uL (1.4-4.0); Lymphocytes % 5.2 % (21.2-54.2); Mean Corpuscular HGB Conc 31.8 GM/DL (32-36); Mean Corpuscular Volume 98.6 FL (87-102); Mean Platelet Volume 10.5 FL (9.6-12.0); Monocytes % 9.5 % (1.7-12.7); Neutrophils % 84.5 % (38.7-73.9); Platelet Count 143 T/CUMM (130-400); Red Blood Count 3.57 MC/CUMM (3.8-5.5); Red Cell Distribution Width 19.2 % (9.3-17.3); White Blood Count 9.1 T/CUMM (4-12)
[2021-02-18 06:17] LABS: Calcium 8.8 MG/DL (8.5-10.1); Osmolality,Calculated 298.5 MOS/KG (273-304); Potassium 4.5 MMOL/L (3.5-5.1)
[2021-02-18] MEDS: INSULIN LISPRO 100 UNIT/ML SUBCUT SCH ×4 (08:16→21:16)
[2021-02-18] MEDS: ASPIRIN EC 81 MG TABLET PO SCH (09:26)
[2021-02-18] MEDS: PANTOPRAZOLE 40 MG TABLET PO SCH ×2 (09:27→21:15)
[2021-02-18] MEDS: carvediloL 25 MG TABLET PO SCH ×2 (09:27→21:16)
[2021-02-18] MEDS: SEVELAMER CARBONATE 800 MG TABLET PO SCH ×3 (09:27→17:27)
[2021-02-18] MEDS: predniSONE 20 MG TABLET PO SCH (09:27)
[2021-02-18] MEDS: FLUTICASONE 50 MCG NASAL SPRAY 16 GM BOTTLE BOTH NARES SCH (09:27)
[2021-02-18] MEDS: SIMVASTATIN 20 MG TABLET PO SCH (17:27)
[2021-02-18] MEDS: APIXABAN 2.5 MG TABLET PO SCH (21:16)
[2021-02-19 05:45] LABS: Eosinophils % 0.4 % (0.00-10.9); Hematocrit 33.5 VOL% (42.0-52.0); Hemoglobin 10.7 GM/DL (14.0-18.0); Immature Granulocytes % 0.8 %; Immature Granulocytes Absolute 0.06 #; Lymphocytes # 0.4 10*3/uL (1.4-4.0); Mean Corpuscular HGB Conc 31.9 GM/DL (32-36); Mean Corpuscular Volume 98.5 FL (87-102); Mean Platelet Volume 10.5 FL (9.6-12.0); Monocytes % 10.1 % (1.7-12.7); Neutrophils % 83.7 % (38.7-73.9); Platelet Count 127 T/CUMM (130-400); Red Cell Distribution Width 19.4 % (9.3-17.3); White Blood Count 7.8 T/CUMM (4-12)
[2021-02-19 06:12] LABS: Calcium 8.4 MG/DL (8.5-10.1); Osmolality,Calculated 292.7 MOS/KG (273-304); Potassium 3.9 MMOL/L (3.5-5.1)
[2021-02-19] MEDS: INSULIN LISPRO 100 UNIT/ML SUBCUT SCH ×2 (08:42→11:44)
[2021-02-19] MEDS: APIXABAN 2.5 MG TABLET PO SCH (08:48)
[2021-02-19] MEDS: SEVELAMER CARBONATE 800 MG TABLET PO SCH ×2 (08:48→11:47)
[2021-02-19] MEDS: ASPIRIN EC 81 MG TABLET PO SCH (08:48)
[2021-02-19] MEDS: carvediloL 25 MG TABLET PO SCH (08:48)
[2021-02-19] MEDS: PANTOPRAZOLE 40 MG TABLET PO SCH (08:48)
[2021-02-19] MEDS: predniSONE 20 MG TABLET PO SCH (08:48)
[2021-02-19] MEDS: FLUTICASONE 50 MCG NASAL SPRAY 16 GM BOTTLE BOTH NARES SCH (08:48)
[2021-02-19 11:40] VITALS: BP 149/73
== END 2021-02-19 14:50 | disposition home health service (06) | DRG 811 ==
LOC: N.ED 14:12 → N.CC 15:17 → SUATTDRO 15:23 → N.EDINP 15:23 → N.CC 17:14 → N.5E 02-08 18:21 → N.CC 02-10 10:02 → N.3E 02-13 15:29
PROVIDERS: ADMIT Internal Medicine; ATTEND Internal Medicine